=== PATIENT | male | born 1940 | race Caucasian/White ===

== ENCOUNTER 2021-01-11 21:04 | Emergency (ER) | payer MEDICARE, OTHER ==
--- NOTE | 2021-01-11 21:52 | EDM.PDOC ---
ED HPI GENERAL MEDICAL PROBLEM - General Chief Complaint: Genitourinary Problem Stated Complaint: CATHETER ISSUE Time Seen by Provider: 01/11/21 21:35 Source of Information: Reports: Patient, Family History Limitations: Reports: No Limitations - History of Present Illness INITIAL COMMENTS - FREE TEXT/NARRATIVE: This is an 80 year old male presenting with a problem with his Ahumada catheter. The patient has had a catheter in place for urinary retention since August of this year. For the past several days he has had problems with the catheter leaking and having a lot of lower abdominal discomfort and distention and concerns about it not draining properly. He denies any fever, chills, nausea, or vomiting. He was recently treated for a UTI with a course of cefdinir - he was having pain and some confusion with that it sounds like and has not been having any of those symptoms today. - Related Data Allergies Allergy/AdvReac Type Severity Reaction Status Date / Time NSAIDS (Non-Steroidal Allergy Cannot Verified 01/11/21 21:42 Anti-Inflamma Remember Home Meds: Home Meds Clopidogrel [Plavix] 1 tab PO DAILY 01/11/21 [History] Furosemide 1 tab PO DAILY 01/11/21 [History] Mirtazapine 1 tab PO DAILY 01/11/21 [History] Omeprazole 1 tab PO DAILY 01/11/21 [History] Pregabalin [Lyrica] 1 tab PO DAILY 01/11/21 [History] Simvastatin 1 tab PO DAILY 01/11/21 [History] allopurinoL [Zyloprim] 1 tab PO BEDTIME 01/11/21 [History] ED ROS GENERAL - Review of Systems Review Of Systems: Comprehensive ROS is negative, except as noted in HPI. ED EXAM, RENAL/ - Physical Exam Exam: See Below Exam Limited By: No Limitations General Appearance: Alert, No Apparent Distress Head: Atraumatic, Normocephalic Neck: Supple, Full Range of Motion Respiratory/Chest: No Respiratory Distress, Lungs Clear, No Accessory Muscle Use Cardiovascular: Tachycardia GI/Abdominal: Soft, Non-Tender (Male) Exam: Other (Ahumada catheter has already been changed out on my evaluation of the patient. It is draining clear yellow urine. ) Neurological: Alert, Oriented, Normal Cognition Skin Exam: Warm, Dry Course - Vital Signs Last Recorded V/S: Last Vital Signs Temp 98 F 01/11/21 21:50 Pulse 66 01/11/21 21:50 Resp 16 01/11/21 21:50 BP 143/63 H 01/11/21 21:50 Pulse Ox 97 01/11/21 21:50 Departure - Departure Time of Disposition: 22:04 Disposition: Home, Self-Care 01 Clinical Impression: Urinary catheter complication - Discharge Information Instructions: Indwelling Urinary Catheter Care, Adult Referrals: PCP,None [Primary Care Provider] - Forms: ED Department Discharge Additional Instructions: Follow up with your doctor as needed. Return for re-evaluation if you develop abdominal pain, fever, vomiting, or confusion as those could indicate infection. Sepsis Event Note (ED) - Focused Exam Vital Signs: Vital Signs Temp Pulse Resp BP Pulse Ox 01/11/21 21:50 98 F 66 16 143/63 H 97 01/11/21 21:25 98 F 66 16 143/63 H 97 - Assessment/Plan Assessment:: This is a pleasant 80 year old gentleman who presents with problems with his urinary catheter. He reports it has been leaking and now is not draining appropriately. Nurse evaluated and changed the catheter prior to my evaluation of the patient with a large amount of urine output. the patient was feeling much improved after the catheter was replaced. The patient is not having any signs or symptoms of UTI at this time and urinalysis is likely to be positive due to colonization from the catheter rather than actual infection. There is no evidence that antibiotics are required at this time. Additionally, he just finished a course of antibiotics. The patient has no abdominal tenderness or other concerning findings. He is appropriate for discharge home and close follow up with his primary care provider. Instructed to return to the ED for any new or worsening symptoms, including abdominal pain, fever, vomiting, confusion, or other concerning symptoms.
== END 2021-01-11 22:30 | disposition home or self-care (01) ==
LOC: JP.ED 21:04
DX: T83.091A Other mechanical complication of indwelling urethral catheter, initial encounter (principal); Z79.02 Long term (current) use of antithrombotics/antiplatelets; Z88.8 Allergy status to other drugs, medicaments and biological substances; Z79.899 Other long term (current) drug therapy
CPT/HCPCS: 51702; 99283-25

== ENCOUNTER 2021-12-13 19:43 | Inpatient (IN) | payer MEDICARE ==
[2021-12-13 20:38] LABS: ESTIMATED GFR 88 mL/min (>60)
[2021-12-13] MEDS ORDERED: Sodium Chloride 0.9% 500 ML IV ONE (20:55)
[2021-12-13 22:36] LABS: CORONAVIRUS COVID-19 NAA NEGATIVE (NEGATIVE)
[2021-12-13] MEDS ORDERED: Non-Formulary Medication 1 Each (Melatonin [Melatonin] 5 MG Tablet) PO SCH (22:52)
[2021-12-13] MEDS ORDERED: Ondansetron 4 MG Tab.DIS PO PRN (22:52)
[2021-12-13] MEDS ORDERED: Morphine 2 MG/ML SYRINGE IVPUSH PRN (22:52)
[2021-12-13] MEDS ORDERED: Potassium Chloride 10 MEQ Cap.ER PO ONE (22:52)
[2021-12-13] MEDS ORDERED: Magnesium Sulfate/Water 2 GM in Premix Bag 1 BAG IV ONE (22:52)
[2021-12-13] MEDS ORDERED: Albuterol 0.083% 2.5 MG/3 ML Neb Soln NEB PRN (22:52)
[2021-12-13] MEDS ORDERED: LORazepam 2 MG/ML SDV IV PRN (22:52)
[2021-12-13] MEDS ORDERED: Acetaminophen 325 MG Tab PO PRN (22:52)
[2021-12-13] MEDS ORDERED: Docusate Sodium 100 MG Cap PO PRN (22:52)
[2021-12-13] MEDS ORDERED: oxyCODONE 5 MG Tab PO PRN (22:52)
[2021-12-13] MEDS ORDERED: Bisacodyl 5 MG Tab PO PRN (22:52)
[2021-12-13] MEDS: cefTRIAXone 1 GM in Sodium Chloride 0.9% 50 ML IV SCH (23:31)
[2021-12-13] MEDS: Sodium Chloride 0.9% 1,000 ML IV SCH (23:31)
[2021-12-14] MEDS: Sodium Chloride 0.9% 1,000 ML IV SCH (07:24)
[2021-12-14] MEDS: Oxybutynin 5 MG Tab PO SCH (08:45)
[2021-12-14] MEDS: Cholecalciferol (Vitamin D3) 25 MCG Tab PO SCH (08:45)
[2021-12-14] MEDS: atorvaSTATin 20 MG Tab PO SCH (08:45)
[2021-12-14] MEDS: Folic Acid 1 MG Tab PO SCH (08:45)
[2021-12-14] MEDS: Pantoprazole 40 MG Tab.CR PO SCH (08:45)
[2021-12-14] MEDS: Ascorbic Acid 500 MG Tab PO SCH (08:45)
[2021-12-14] MEDS: Enoxaparin 40 MG/0.4 ML Syringe SUBCUT SCH (08:46)
[2021-12-14] MEDS: Furosemide 40 MG Tab PO SCH (08:46)
[2021-12-14] MEDS: Pregabalin 50 MG Cap PO SCH (08:51)
[2021-12-14] MEDS ORDERED: ASCORBIC ACID 100 MG PO SCH (09:00)
[2021-12-14] MEDS ORDERED: Non-Formulary Medication 1 Each (Folic Acid [Folic Acid] 0.4 MG Tablet) PO SCH (09:00)
[2021-12-14] MEDS: Melatonin 3 MG Tab PO SCH (20:55)
[2021-12-14] MEDS: Allopurinol 100 MG Tab PO SCH (20:56)
[2021-12-14] MEDS: cefTRIAXone 1 GM in Sodium Chloride 0.9% 50 ML IV SCH (22:33)
[2021-12-15] MEDS: Pantoprazole 40 MG Tab.CR PO SCH (09:17)
[2021-12-15] MEDS: Oxybutynin 5 MG Tab PO SCH (09:17)
[2021-12-15] MEDS: Furosemide 40 MG Tab PO SCH (09:18)
[2021-12-15] MEDS: Cholecalciferol (Vitamin D3) 25 MCG Tab PO SCH (09:18)
[2021-12-15] MEDS: Folic Acid 1 MG Tab PO SCH (09:18)
[2021-12-15] MEDS: atorvaSTATin 20 MG Tab PO SCH (09:18)
[2021-12-15] MEDS: Ascorbic Acid 500 MG Tab PO SCH (09:18)
[2021-12-15] MEDS: Enoxaparin 40 MG/0.4 ML Syringe SUBCUT SCH (09:19)
[2021-12-15] MEDS: Pregabalin 50 MG Cap PO SCH (09:21)
[2021-12-15] MEDS: Metoprolol Succinate 25 MG Tab.ER PO SCH (09:22)
[2021-12-15] MEDS: Melatonin 3 MG Tab PO SCH (20:50)
[2021-12-15] MEDS: Allopurinol 100 MG Tab PO SCH (20:50)
[2021-12-15] MEDS: Docusate Sodium 100 MG Cap PO PRN (20:57)
[2021-12-15] MEDS: cefTRIAXone 1 GM in Sodium Chloride 0.9% 50 ML IV SCH (22:31)
[2021-12-16] MEDS: Pantoprazole 40 MG Tab.CR PO SCH (07:59)
[2021-12-16] MEDS: Furosemide 40 MG Tab PO SCH (08:00)
[2021-12-16] MEDS: Folic Acid 1 MG Tab PO SCH (08:00)
[2021-12-16] MEDS: Metoprolol Succinate 25 MG Tab.ER PO SCH (08:01)
[2021-12-16] MEDS: Ascorbic Acid 500 MG Tab PO SCH (08:01)
[2021-12-16] MEDS: Oxybutynin 5 MG Tab PO SCH (08:01)
[2021-12-16] MEDS: Cholecalciferol (Vitamin D3) 25 MCG Tab PO SCH (08:01)
[2021-12-16] MEDS: atorvaSTATin 20 MG Tab PO SCH (08:01)
[2021-12-16] MEDS: Enoxaparin 40 MG/0.4 ML Syringe SUBCUT SCH (08:02)
[2021-12-16] MEDS: Pregabalin 50 MG Cap PO SCH (08:04)
[2021-12-16] MEDS: Melatonin 3 MG Tab PO SCH (20:16)
[2021-12-16] MEDS: Allopurinol 100 MG Tab PO SCH (20:16)
[2021-12-16] MEDS: Docusate Sodium 100 MG Cap PO PRN (20:16)
[2021-12-16] MEDS: cefTRIAXone 1 GM in Sodium Chloride 0.9% 50 ML IV SCH (23:18)
[2021-12-17] MEDS: Folic Acid 1 MG Tab PO SCH (09:03)
[2021-12-17] MEDS: Metoprolol Succinate 25 MG Tab.ER PO SCH (09:03)
[2021-12-17] MEDS: Oxybutynin 5 MG Tab PO SCH (09:03)
[2021-12-17] MEDS: atorvaSTATin 20 MG Tab PO SCH (09:03)
[2021-12-17] MEDS: Ascorbic Acid 500 MG Tab PO SCH (09:04)
[2021-12-17] MEDS: Cholecalciferol (Vitamin D3) 25 MCG Tab PO SCH (09:04)
[2021-12-17] MEDS: Furosemide 40 MG Tab PO SCH (09:04)
[2021-12-17] MEDS: Enoxaparin 40 MG/0.4 ML Syringe SUBCUT SCH (09:04)
[2021-12-17] MEDS: Pantoprazole 40 MG Tab.CR PO SCH (09:04)
[2021-12-17] MEDS: Pregabalin 50 MG Cap PO SCH (09:07)
[2021-12-17 11:16] VITALS: BP 88/53; PULSE 80
== END 2021-12-17 13:45 | disposition home health service (06) | DRG 699 ==
LOC: JP.ED 19:43 → JP.MS 21:05
PROVIDERS: ADMIT Internal Medicine; ATTEND Hospitalist
DX: T83.511A Infection and inflammatory reaction due to indwelling urethral catheter, initial encounter (principal); I48.20 Chronic atrial fibrillation, unspecified; R53.1 Weakness; N39.0 Urinary tract infection, site not specified; R79.89 Other specified abnormal findings of blood chemistry; Z20.822 Contact with and (suspected) exposure to COVID-19; I50.9 Heart failure, unspecified; N31.9 Neuromuscular dysfunction of bladder, unspecified; Z88.8 Allergy status to other drugs, medicaments and biological substances; E83.42 Hypomagnesemia; E87.6 Hypokalemia; M10.9 Gout, unspecified; Z95.0 Presence of cardiac pacemaker; I25.2 Old myocardial infarction; Z87.891 Personal history of nicotine dependence; Z79.02 Long term (current) use of antithrombotics/antiplatelets; Z79.899 Other long term (current) drug therapy
CPT/HCPCS: 0241U; 10061; 36415; 71045; 71045-26; 80048; 81001; 83605; 83735; 83880; 84484; 85025; 85651; 86140; 87040; 87086; 93005; 93010; 97162-GP; 97530-GP; 97535-GP; 99222; 99232; 99238; 99284-25; 99285; A9270-GY; J0696; J1650; J3475; J7030; J7040

== ENCOUNTER 2022-01-07 16:02 | Emergency (ER) | payer MEDICARE ==
[2022-01-07] MEDS ORDERED: Potassium Chloride 20 MEQ Tab.ER PO ONE (19:26)
== END 2022-01-08 00:44 | disposition home or self-care (01) ==
LOC: JP.ED 16:02
DX: T83.098A Other mechanical complication of other urinary catheter, initial encounter (principal); I73.9 Peripheral vascular disease, unspecified; M1A.0710 Idiopathic chronic gout, right ankle and foot, without tophus (tophi); M77.31 Calcaneal spur, right foot; M19.071 Primary osteoarthritis, right ankle and foot; E87.6 Hypokalemia; R79.89 Other specified abnormal findings of blood chemistry; I50.9 Heart failure, unspecified; I48.91 Unspecified atrial fibrillation; I25.2 Old myocardial infarction; E11.9 Type 2 diabetes mellitus without complications; Z95.0 Presence of cardiac pacemaker; Z88.8 Allergy status to other drugs, medicaments and biological substances; Z79.899 Other long term (current) drug therapy; Z86.718 Personal history of other venous thrombosis and embolism
CPT/HCPCS: 36415; 51702; 71045; 73630; 80048; 81001; 83880; 84550; 85025; 85379; 86140; 87086; 93971; 99285; A9270; 99283